=== PATIENT | female | born 1960 | race Hispanic/Latino ===

== ENCOUNTER 2021-01-05 17:30 | Outpatient (CLI) | payer OTHER | END 2021-01-05 17:31 | disposition home or self-care (01) | LOC: SLEEPLAB 17:30 | PROVIDERS: ATTEND Internal Medicine Pulmonary Disease | DX: G47.33 Obstructive sleep apnea (adult) (pediatric) (principal); R06.83 Snoring; G47.00 Insomnia, unspecified; K21.9 Gastro-esophageal reflux disease without esophagitis; J84.9 Interstitial pulmonary disease, unspecified; I10 Essential (primary) hypertension | CPT/HCPCS: 95806 ==